=== PATIENT | female | born 1960 | race Caucasian/White ===

== ENCOUNTER → 2024-06-07 15:11 | Outpatient (CLI) | payer BC, SELFPAY ==
--- NOTE | 2024-06-07 15:14 | DI.MRI.S_ITS ---
PROCEDURE: MR KNEE LT WO CON INDICATIONS: strain of left quadriceps muscle,fascia and tendon TECHNIQUE: Noncontrast sagittal PD fast spin echo and T2 fast spin echo with fat saturation, sagittal 3-D FLASH with fat saturation; coronal T1 spin echo and PD fast spin echo with fat saturation, and axial PD fast spin echo with fat saturation through the knee. COMPARISON: [facility] [place], [place], XR KNEE 4+ VIEWS LEFT, 05/30/2024, 15:39. FINDINGS: Image quality: Motion degraded Menisci: Medial: Suspect oblique tear involving the posterior horn and body, mostly at the periphery. Lateral: Completely macerated and extruded Cruciate ligaments: PCL appears intact. Moderate signal abnormality throughout the ACL, without full-thickness defect Medial structures: MCL: Probable moderate to high-grade edema proximally, coronal images are significantly limited by motion Pes anserine tendons: Intact Semimembranosus: Intact Lateral structures: LCL: Moderate edema proximally. Coronal images significantly degraded by motion Biceps femoris: Probable insertional tendinopathy IT band: Mild nonspecific edema surrounding the ligament Popliteus tendon: Mild insertional tendinopathy and edema Anterior structures: Extensor mechanism: No full-thickness defect. Mild edema at the quadriceps insertion Fat pads: Mild Hoffa's fat pad edema Medial retinaculum: Suspect partial tear and edema at the femoral origin also involving the MPFL Trochlea: Unremarkable morphology. Bone and joint: Bones: There is focal edema in the tibial plateau, greater in the lateral aspect. There is no displaced fracture fragment. Edema also extends to the medial anterior tibial plateau Focal edema also seen in the lateral femoral condyle not well assessed due to motion artifact. Cartilage: Suspect high-grade cartilage loss throughout the lateral compartment. Moderate cartilage loss seen throughout the medial compartment. Near full-thickness defect in the patellar median ridge and [id number] heterogeneity of the femoral trochlea Joint space: Moderate joint effusion and debris. Posterior joint loose body measures 1.1 cm [place]agua's cyst: None Soft tissues: Mild diffuse soft tissue swelling. IMPRESSION: Moderate to severe osteoarthritic changes, most significant in the lateral compartment, with severe cartilage loss. Completely macerated lateral meniscus. Oblique tear of the medial meniscus. Suspect mucoid degeneration versus sprain of the ACL. Probable sprains of the collateral ligaments also seen, greater in the MCL. Suspect partial tear and moderate edema also seen at the femoral origin of the medial patellar retinaculum and MPFL. Contusions, likely nondisplaced fractures of the tibial plateau, greater at the lateral aspect, extending to the anterior medial aspect. Contusion also seen at the lateral femoral condyle. Mild edema at the quadriceps insertion. Mild biceps femoris and popliteus insertional tendinopathy. Nonspecific edema surrounds the IT band. Moderate joint effusion and debris, including a 1.1 cm posterior joint loose body. Dictated by: Omar Walls M.D. on 06/08/2024 at 15:01 Approved by: Omar Walls M.D. on 06/08/2024 at 15:08
== END ==
LOC: MRI 15:14
PROVIDERS: Referring Provider Physician Assistant Surgical; Visit Provider Physician Assistant Surgical
DX: S76.112A Strain of left quadriceps muscle, fascia and tendon, initial encounter (principal); S83.242A Other tear of medial meniscus, current injury, left knee, initial encounter; S80.02XA Contusion of left knee, initial encounter; M25.462 Effusion, left knee; X58.XXXA Exposure to other specified factors, initial encounter
CPT/HCPCS: 73721